=== PATIENT | male | born 1950 | race African-American/Black ===

== ENCOUNTER 2021-07-05 09:17 | Day surgery (SDC) | payer OTHER, BC ==
[2021-07-02 09:03] VITALS: BMI 25.8
[2021-07-05] MEDS ORDERED: ePHEDrine SULFATE 50 MG/1 ML AMPULE ONE (10:03)
[2021-07-05 10:28] VITALS: BP 120/74; PULSE 80; TEMP 97.1
== END 2021-07-05 10:40 | disposition home or self-care (01) ==
LOC: FASU-ENDO 09:17
PROVIDERS: ATTEND Internal Medicine Gastroenterology
PROC: 0DJD8ZZ Inspection of Lower Intestinal Tract, Via Natural or Artificial Opening Endoscopic (ICD-10-PCS; principal; 2021-07-05 09:50)
DX: Z12.11 Encounter for screening for malignant neoplasm of colon (principal); K57.30 Diverticulosis of large intestine without perforation or abscess without bleeding